=== PATIENT | female | born 1970 | race Caucasian/White ===

== ENCOUNTER 2019-09-24 23:44 | Emergency (ER) | payer MEDICARE, MEDICAID ==
[~2019-09-24] VITALS: Ht 165.1 cm; Wt 81.6 kg
[2019-09-25] VITALS: BP 167/76
[2019-09-25] MEDS ORDERED: diazePAM 5 MG TABLET PO ONE (00:30)
[2019-09-25] MEDS ORDERED: fentaNYL PF VIAL 100 MCG/2 ML VIAL IM ONE (00:30)
[2019-09-25] MEDS ORDERED: KETOROLAC 60 MG/2 ML VIAL. IM ONE (00:30)
[2019-09-25] MEDS ORDERED: predniSONE 10 MG TABLET PO ONE (00:30)
[2019-09-25] MEDS ORDERED: DICL50TA2 PO (01:05)
[2019-09-25] MEDS ORDERED: HYDR-3164 PO (01:05)
[2019-09-25] MEDS ORDERED: METH4TAB2 PO (01:05)
[2019-09-25] MEDS ORDERED: CYCL10TA2 PO (01:05)
--- NOTE | 2019-09-25 01:06 | PHYS DOC ---
Past Medical History Past Medical History: Arthritis, CAD Additional Past Surgical Histo: STENTS Alcohol Use: None Drug Use: None Adult General Chief Complaint Chief Complaint: BACK PAIN OR INJURY HPI HPI Patient is a 49 year old female with a history of CAD, arthritis, who presents to the ED today complaining of 9 out of 10 bilateral low back pain radiating to the left lower extremity that began 2 weeks ago after heavy lifting. Patient states she helped a family member move some heavy items causing herself the pain. Patient denies any numbness or tingling to bilateral lower extremities. Denies any loss of bowel bladder function. Reports the pain feels like a stabbing sensation to the lower back. Reports the pain is worse on certain movements as well as coughing. Review of Systems Review of Systems Constitutional: Denies fever or chills [] GI: Denies abdominal pain, nausea, vomiting, bloody stools or diarrhea [] : Denies dysuria or hematuria [] Musculoskeletal: Reports bilateral low back pain radiating to the left lower extremity Integument: Denies rash or skin lesions [] Neurologic: Denies headache, focal weakness or sensory changes [] All other systems were reviewed and found to be within normal limits, except as documented in this note. Current Medications Current Medications Current Medications Medications (Trade) Dose Ordered Sig/Eufemia Start Time Stop Time Status Last Admin Dose Admin Diazepam (Valium) 5 mg 1X ONCE 09/25/19 00:30 09/25/19 00:31 DC 09/25/19 00:45 5 MG Fentanyl Citrate (Fentanyl 2ml Vial) 50 mcg 1X ONCE 09/25/19 00:30 09/25/19 00:31 DC 09/25/19 00:48 50 MCG Ketorolac Tromethamine (Toradol Im) 60 mg 1X ONCE 09/25/19 00:30 09/25/19 00:31 DC 09/25/19 00:49 60 MG Prednisone (Prednisone) 50 mg 1X ONCE 09/25/19 00:30 09/25/19 00:31 DC 09/25/19 00:45 50 MG Allergies Allergies Allergies Coded Allergies Type Severity Reaction Last Updated Verified carvedilol Allergy Unknown 09/25/19 Yes lisinopril Allergy Unknown 09/25/19 Yes morphine Allergy Unknown 09/25/19 Yes Physical Exam Physical Exam Constitutional: Well developed, well nourished, no acute distress, non-toxic appearance. [] Abdomen: Bowel sounds normal, soft, no tenderness, no masses, no pulsatile дмитрий s. [] Skin: Warm, dry, no erythema, no rash. [] Back: No obvious deformity noted to the lumbar spine of the entire spine. Diffuse paraspinal muscle tenderness to bilateral lumbar spine, no midline lumbar spine tenderness, no CVA tenderness. [] Positive straight leg raise to the left, negative straight leg raise the right Extremities: No tenderness, no cyanosis, no clubbing, ROM intact, no edema. [] Neurologic: Alert and oriented X 3, normal motor function, normal sensory function, no focal deficits noted. [] Psychologic: Affect normal, judgement normal, mood normal. [] Current Patient Data Vital Signs Vital Signs Date Time Temp Pulse Resp B/P (MAP) Pulse Ox O2 Delivery O2 Flow Rate FiO2 09/25/19 00:48 98 Room Air 09/25/19 00:00 97.7 19 167/76 (106) 97.7 EKG EKG [] Radiology/Procedures Radiology/Procedures [] Course & Med Decision Making Course & Med Decision Making Pertinent Labs and Imaging studies reviewed. (See chart for details) This is a 49-year-old female patient presenting to the ED today with low back pain radiating to the left lower extremity that began 2 weeks ago after heavy lifting. Lumbar spine x-rays interpreted by Dr. Enriquez are negative. D/c to home. F/u with PCP next week Latoya Disclaimer Dragon Disclaimer This electronic medical record was generated, in whole or in part, using a voice recognition dictation system. Departure Departure Impression: Primary Impression: Acute lumbosacral myofascial strain Disposition: HOME, SELF-CARE Condition: STABLE Referrals: NO PCP (PCP) JUDAH NOWAK MD follow up in 1-2 weeks Patient Instructions: Lumbosacral Strain Additional Instructions: You were evaluated in the medicine for low back pain. Your lumbar spine x-rays are negative for any acute findings. Please follow-up with your own doctor. You can also follow-up with the neurosurgeon provided. Take the prescribed medications as ordered. Come back to the ED at any point symptoms worsen. Scripts Methylprednisolone (MEDROL) 4 Mg Tab.ds.pk 1 PKG PO UD, #1 PKG Prov: ALEXIS NICHOLSON [employer] 09/25/19 Diclofenac Potassium (DICLOFENAC POTASSIUM) 50 Mg Tablet 1 TAB PO BID, #20 TAB 1 Refill Prov: ALEXIS NICHOLSON APRN 09/25/19 Cyclobenzaprine Hcl (CYCLOBENZAPRINE HCL) 10 Mg Tablet 1 TAB PO TID, #30 TAB Prov: ALEXIS NICHOLSON APRN 09/25/19 Hydrocodone/Apap 5-325 (NORCO 5-325 TABLET) 1 Each Tablet 1 TAB PO Q6HRS PRN for PAIN, #20 TAB Prov: ALEXIS NICHOLSON APRN 09/25/19 Problem Qualifiers Primary Impression: Acute lumbosacral myofascial strain Encounter type: initial encounter Qualified Codes: S39.012A - Strain of muscle, fascia and tendon of lower back, initial encounter ALEXIS NICHOLSON APRN Sep 25, 2019 01:06
--- NOTE | 2019-09-25 04:05 | RAD ---
LUMBAR SPINE 2-3V DATE: 09/25/2019 12:17 AM INDICATION: Low back pain COMPARISON: None. FINDINGS: Five non-rib bearing lumbar-type vertebral bodies are present. Bones/Alignment: No evidence of acute compression fracture. There is no listhesis. Joints: Mild degenerative disc disease. Miscellaneous: Aortoiliac stent graft. Right upper quadrant surgical clips. IMPRESSION: No evidence of acute compression fracture. Electronically signed by: Navi Monroy MD (09/25/2019 4:02 AM) [id number]
== END 2019-09-25 01:20 | disposition home or self-care (01) ==
LOC: ER 23:44
DX: S39.012A Strain of muscle, fascia and tendon of lower back, initial encounter (principal); I25.10 Atherosclerotic heart disease of native coronary artery without angina pectoris; M19.90 Unspecified osteoarthritis, unspecified site; Z88.8 Allergy status to other drugs, medicaments and biological substances; Z88.5 Allergy status to narcotic agent; X50.9XXA Other and unspecified overexertion or strenuous movements or postures, initial encounter; Y93.89 Activity, other specified; Y92.89 Other specified places as the place of occurrence of the external cause; Y99.8 Other external cause status
CPT/HCPCS: 72100; 96372; 99284; J1885; J3010; J7512